=== PATIENT | female | born 1985 ===

== ENCOUNTER 2022-04-21 09:03 | Outpatient (CLI) | payer OTHER, SELFPAY | END 2022-04-21 09:04 | disposition home or self-care (01) | LOC: NFLDREF 04-23 01:41 | PROVIDERS: PCP Family Medicine; Referring Provider Family Medicine; Visit Provider Family Medicine | DX: Z00.00 Encounter for general adult medical examination without abnormal findings (principal); R53.83 Other fatigue; Z13.6 Encounter for screening for cardiovascular disorders; Z13.21 Encounter for screening for nutritional disorder; R01.1 Cardiac murmur, unspecified | CPT/HCPCS: 80048; 80061; 82306; 82607; 84443 ==

== ENCOUNTER 2022-05-07 14:51 | Outpatient (CLI) | payer OTHER, SELFPAY | END 2022-05-07 14:52 | disposition home or self-care (01) | PROVIDERS: PCP Family Medicine; Visit Provider Family Medicine | DX: R01.1 Cardiac murmur, unspecified (principal) | CPT/HCPCS: 93306 ==